=== PATIENT | male | born 1955 | race Caucasian/White ===

== ENCOUNTER 2017-12-18 07:01 | Emergency (ER) | payer BC ==
[2017-12-18 07:18] VITALS: BP 147/84
--- NOTE | 2017-12-18 07:23 | UC ---
Skin Complaint HPI - HPI Summary HPI Summary: 62 year old male with rash. Exposed to poison leann recently and now with rash. Pt states rash on arms, legs and scrotum d/t poison leann that started 12/17/17. No fever. no SOB. 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 [ End ] - History of Current Complaint Chief Complaint: UCSkin Time Seen by Provider: 12/18/17 07:20 Stated Complaint: RASH Hx Obtained From: Patient Onset/Duration: Sudden Onset Timing: Constant Onset Severity: Moderate Current Severity: Moderate Pain Intensity: 0 - Allergy/Home Medications Allergies/Adverse Reactions: Allergies Allergy/AdvReac Type Severity Reaction Status Date / Time Penicillins Allergy Severe Anaphylatic Verified 12/18/17 07:12 Shock Home Medications: Home Medications Levothyroxine TAB* [Synthorid 112 MCG TAB*] 1 tab PO DAILY 12/18/17 [History Confirmed 12/18/17] Review of Systems Skin: Rash Is Patient Immunocompromised?: No All Other Systems Reviewed And Are Negative: Yes PMH/Surg Hx/FS Hx/Imm Hx Previously Healthy: Yes Endocrine History: Thyroid Disease - Surgical History Surgical History: None - Family History Known Family History: Positive: Unknown - Social History Occupation: Employed Full-time Alcohol Use: Occasionally Substance Use Type: None Smoking Status (MU): Never Smoked Tobacco Physical Exam Triage Information Reviewed: Yes Appearance: Well-Appearing Vital Signs: Initial Vital Signs Temp 98.2 F 12/18/17 07:13 Pulse 73 12/18/17 07:13 Resp 16 12/18/17 07:13 BP 147/84 12/18/17 07:13 Pulse Ox 98 12/18/17 07:13 Vital Signs Reviewed: Yes Eye Exam: Normal ENT Exam: Normal Neck: Positive: 1 Respiratory Exam: Normal Cardiovascular Exam: Normal Musculoskeletal Exam: Normal Neurological Exam: Normal Psychological Exam: Normal Skin Exam: Normal Skin: Positive: rashes - papulovesicular lesions/ rash on b/l UE with linear appearance on the left forearm. scrptum inspection non contributory Course/Dx - Course Course Of Treatment: has had numerous times. treat at this time. f/u with PCP - Differential Diagnoses - Skin Complaint Differential Diagnoses: Contact Dermatitis, Drug Rash, Local Allergic Reaction, Poison Leann, Poison Proctor, Urticaria - Diagnoses Provider Diagnoses: Contact dermatitis due to plant Discharge - Sign-Out/Discharge Documenting (check all that apply): Discharge/Admit/Transfer - Discharge Plan Condition: Good Disposition: HOME Prescriptions: methylPREDNISolone [Medrol Dosepak 4 MG*] 0 mg PO .SEE MARTI INSTRUCTION #1 tab Triamcinolone 0.025% OINT * 1 applic TOPICAL BID #1 tube Patient Education Materials: Poison Leann (ED) Referrals: Keli Daniels MD [Primary Care Provider] - 4 Days (if needed ) - Billing Disposition and Condition Condition: GOOD Disposition: HOME
== END 2017-12-18 07:32 | disposition home or self-care (01) ==
LOC: UCEAST 07:01
DX: T63.791A Toxic effect of contact with other venomous plant, accidental (unintentional), initial encounter (principal); L23.7 Allergic contact dermatitis due to plants, except food; Y92.9 Unspecified place or not applicable; Z88.0 Allergy status to penicillin
CPT/HCPCS: 99212; G0463

== ENCOUNTER 2018-07-22 05:30 | Day surgery (SDC) | payer BC ==
[~2018-07-22 05:30] MED LIST: Buffered Lidocaine 0.9% SYRIN* 5 ML/SYR SYRINGE INTRADERM ONE
[2018-07-22] MEDS ORDERED: Lactated Ringers 1000 ML Bag* 1,000 ML IV SCH (06:00)
[2018-07-22] MEDS ORDERED: Famotidine IV* 10 MG/ML 2 ML (20 mg) IV ONE (06:00)
[2018-07-22] MEDS ORDERED: Dexamethasone IV* 4 MG/ML 1 ML (4 MG) ONE (06:03)
[2018-07-22] MEDS ORDERED: Clindamycin 900 MG/D5W BAG(*) 900 MG/50 ML BAG IVPB ONE (06:03)
[2018-07-22] MEDS ORDERED: Famotidine IV* 10 MG/ML 2 ML (20 mg) ONE (06:03)
[2018-07-22] MEDS: Dexamethasone IV* 4 MG/ML 1 ML (4 MG) IV SLOW PU ONE ×2 (06:18→06:19)
[2018-07-22] MEDS ORDERED: Atracurium* 10 MG/ML 10 ML VIAL ONE (07:03)
[2018-07-22] MEDS ORDERED: Midazolam* 1 MG/ML 5 ML VIAL (5 MG) ONE (07:03)
[2018-07-22] MEDS ORDERED: fentaNYL* 50 MCG/ML 2 ML VIAL (100 MCG VIAL) ONE (07:03)
[2018-07-22] MEDS ORDERED: Lidocaine 2% PF * 5 ML VIAL ONE (07:03)
[2018-07-22] MEDS ORDERED: Propofol* 10 MG/ML 20 ML BTL ONE (07:03)
[2018-07-22] MEDS ORDERED: Ondansetron INJ* 2 MG/ML VIAL ONE (07:03)
[2018-07-22] MEDS ORDERED: ROPIVACAINE 5 MG/ML 30 ML BTL (0.5%) ONE (07:18)
[2018-07-22] MEDS ORDERED: Phenylephrine INJ* 10 MG/ML 1 ML VIAL (10 MG) ONE (08:09)
[2018-07-22] MEDS ORDERED: EPINEPHRINE 1 MG/ML 1 ML VIAL ONE (08:34)
[2018-07-22] MEDS ORDERED: fentaNYL* 50 MCG/ML 2 ML VIAL (100 MCG VIAL) IV PRN (09:02)
[2018-07-22] MEDS ORDERED: Naloxone* 0.4 MG/ML 1 ML VIAL IV PRN (09:02)
[2018-07-22] MEDS ORDERED: oxyCODONE/Acetamin 5/325 MG* TAB PO PRN (09:02)
[2018-07-22] MEDS ORDERED: HYDROmorphone INJ1* 1 MG/ML SYRINGE IV PRN (09:02)
[2018-07-22] MEDS ORDERED: Ondansetron INJ* 2 MG/ML VIAL IV PRN (09:02)
[2018-07-22] MEDS ORDERED: DiMENhydriNATE IV* 50 MG/ML VIAL IV PUSH PRN (09:02)
[2018-07-22] MEDS ORDERED: Bupivacaine 0.5% W/EPI SDV* 30 ML VIAL ONE (09:26)
[2018-07-22 12:39] VITALS: BP 125/75
--- NOTE | 2018-07-24 20:36 | OP ---
OPERATIVE REPORT: DATE OF OPERATION: 07/22/18 DATE OF : 57 SURGEON: Harshad Tony MD PIT OPERATOR: AJ Katz A physician teachers assistant was required for the length of the case for assistance with positioning, retrac tion, instrumentation and closure. ANESTHESIOLOGIST: Dr. Edis Real. ANESTHESIA: General anesthesia, interscalene block regional anesthesia, local anesthesia consisting of approximately 10 cc of 0.5% Marcaine with epinephrine. PRE-OP DIAGNOSES: 1. Left shoulder rotator cuff tendon tear, subscapularis, full-thickness, full width, retracted. 2. Left shoulder mild rotator cuff tendinitis, possible low-grade partial- thickness tear supraspina tus. 3. Left shoulder AC joint osteoarthritis, subacromial bursitis, medial subluxation in the long head of the biceps tendon. POST-OP DIAGNOSES: 1. Left shoulder rotator cuff tendon tear, subscapularis, full-thickness, full width, retracted. 2. Left shoulder mild rotator cuff tendinitis, supraspinatus. 3. Left shoulder AC joint osteoarthritis, subacromial bursitis and impingement, medial subluxation l cely head of biceps tendon. OPERATIVE PROCEDURE: 1. Left shoulder open rotator cuff tendon repair, subscapularis. 2. Left shoulder open proximal biceps tenodesis, subpectoral. 3. Left shoulder arthroscopic subacromial decompression. 4. Left shoulder arthroscopic distal clavicle resection. 5. Left shoulder arthroscopic evaluation of the supraspinatus rotator cuff tendon. 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 The patient was referred to me by a partner. The patient was initially scheduled to have his surgery approximately 1 month ago, bu t this was delayed because of a dental infection or dental work, requiring a root canal. The patient was on antibiotics after that root canal. He has been symptom-free and approximately 1 month has pa ssed since that dental work. We discussed risks and potential complications. I discussed pros and cons of arthroscopic versus open approach. I certainly repair subscapularis ten dons with both approaches. The patient did not mind a larger incision and preferred more fixation th at can be provided with an open approach. I considered doing the whole surgery open, but I wanted to inspect the supraspinatus, so I decided th at I would first use joint arthroscopy to inspect the supraspinatus and decide whether that would nee d to be repaired. POSITIONING: Lazy beach chair. IV FLUIDS: See Anesthesia note. ANTIBIOTICS: Clindamycin 900 mg IV. GBMT-HR-IMUJ TIME: 157 minutes. ARTHROSCOPIC FLUID UTILIZED: Nursing certified orthotist practice manager was not aware of this number. SPECIMENS: None. IMPLANTS: Mitek Healix 4.5-mm anchors, double loaded, x5. COMPLICATIONS: None. ESTIMATED BLOOD LOSS: Minimal. DESCRIPTION OF PROCEDURE: Preoperatively, the patient signed a written consent. Operative extremity marked in preoperative holding. The patient underwent an interscalene nerve block by Dr. Real. The patient was taken back to the operating room and placed supine on operating room table. The shyann ent was sedated and intubated. The patient was placed in a beach chair position using a headrest. We also utilized a spider arm positioner. The left shoulder was prepped and draped. Surgical time-out was performed. The rest behind the left shoulder and upper torso was removed for the arthroscopic c omponent of the case. I injected 30 cc of normal saline into the glenohumeral joint from posterior. I then made a posterio r portal and commenced my diagnostic arthroscopy. The patient had no articular cartilage wear in the glenohumeral joint. I noted a very subluxed medially long head biceps tendon. There was a very ret racted subscapularis tendon tear. No articular cartilage lesions. No clear supraspinatus tear noted from its articular side. I used an arthroscopic scissors to cut the biceps tendon near its origin. I debrided some inflamed t issue about the anterior joint near the subscapularis. I next moved to the subacromial space. I made a lateral and then a posterolateral arthroscopy portal s. There was some inflammation about the anterior supraspinatus, similar to where I had an area of c oncern based on preoperative imaging that I appreciated, but the radiologist did not comment on. I d ebrided some bursa with an arthroscopic shaver. I inspected this tissue well and realized that this was rotator interval tissue that had retracted posterior rather than the supraspinatus tissue itself. I next performed a subacromial decompression using an arthroscopic denisa. I then proceeded to the AC joint. I debrided bursitic tissue with the VAPR and then removed 8 mm of the bone with an arthroscop ic denisa. I next removed fluid and instruments from the shoulder. Closed skin incisions with [id number] a nd 12 stitches using nylon 3-0 suture. Reapplied the back piece to provide support to the back and s houlder for the open component of the case. I took the patient out of some beach chair, moved him 20 degrees closer to flat, under the guidance of Anesthesia. I marked and then made a skin incision consistent with a deltopectoral approach. I changed my knife and dissected with scissors down to the cephalic vein. I took the cephalic vein laterally with the d eltoid. I noted that the patient had a very muscular deltoid muscle. I identified the conjoint tend ons. I identified the pectoralis major tendon, which was also robust. I removed some clavipectoral fascia overlying the subscapularis. I identified the bicipital groove, which was devoid of the bicep s tendon because it had subluxed so much medially. I made an incision in the scar tissue and fascia at the point of the bicipital groove. I found the long head biceps tendon and placed a tagging stitc h in it. I noted the subscapularis tendon to be very retracted. There was fascial tissue that was present mor e laterally, but the subscapularis tendon had retracted proximal to the coracoid. I placed a series of tagging stitches in the subscapularis tendon. I placed tension on this and freed it up with my fi ngers, anteriorly, posteriorly and superiorly. I found that with the shoulder in small amount of internal rotation, the tendon was reducible to its footprint, the lesser trochanter. I prepared the lesser trochanter. I did this with rongeur, curette, and high-speed denisa. The patien t had a quite large footprint. I decided to maximize stability and use 5 anchors. I placed 2 medial, 1 central and 2 lateral anchor s, all Mitek Healix, all 4.5-mm double loaded. I next used a free needle to pass 9 stitches into the subscapularis tendon. One of the stitches from one of the anchors was pulled out, but 9 stitches were placed. This brought tendon nicely to bone. It was certainly under some tension, notable when the shoulder was externally rotated beyond neutral. I next used 2 FiberWire #2 sutures, [id number] stitches to tenodese the long head biceps tendon to the pectoralis major tendon near its insertion. I had some light tension on the long head biceps tendon to assure a good biceps contour. Irrigation. I next closed the deltopectoral interval with a running stitch using a colored Ethibond 0 suture. Irrigation. Closed subcutaneous tissue with buried simple stitches using Vicryl 2-0 sutur e. Closed the skin with a running stitch using nylon 3-0 suture. Xeroform over all incisions, 4x4s, ABDs, foam tape. The patient was placed in a sling without an abd uction pillow. He was awakened, extubated and brought to the PACU. DISPOSITION: The patient was provided wound care instructions. He was sent on Percocet as needed fo r pain control and Bactrim, 5-day course for infection prophylaxis. The patient will follow up with 10 to 14 days postoperative. He was given wound care instructions. We will hold off on physical the rapy in the early postoperative period. We will certainly keep him from externally rotating beyond n eutral with that shoulder given that repair was under some tension. I explained this to his pos toperatively. [id number]/[facility] #: [id number]
== END 2018-07-22 13:25 | disposition home or self-care (01) ==
LOC: OR 05:30
PROVIDERS: ATTEND Orthopaedic Surgery
DX: S46.012A Strain of muscle(s) and tendon(s) of the rotator cuff of left shoulder, initial encounter (principal); M75.42 Impingement syndrome of left shoulder; M19.012 Primary osteoarthritis, left shoulder; M75.52 Bursitis of left shoulder; M75.22 Bicipital tendinitis, left shoulder; W19.XXXA Unspecified fall, initial encounter; Y92.79 Other farm location as the place of occurrence of the external cause; G89.18 Other acute postprocedural pain; E03.9 Hypothyroidism, unspecified
CPT/HCPCS: J1100; J2250; J2405; J2704; J2795; J3010

== ENCOUNTER → 2019-07-05 07:42 | Day surgery (SDC) | payer BC ==
[~2019-07-05 07:42] MED LIST changes: +Acetaminophen TAB* 325 MG PO PRN; -Buffered Lidocaine 0.9% SYRIN* 5 ML/SYR SYRINGE INTRADERM ONE; +Buffered Lidocaine 1% SYRIN* 1 ML/SYRINGE INTRADERM ONE; +Bupivacaine 0.5%* 50 ML MDV VIAL ONE; +Clindamycin 900 MG/D5W BAG(*) 900 MG/50 ML BAG IVPB ONE; +Dexamethasone IV* 4 MG/ML 1 ML (4 MG) ONE; +Famotidine IV* 10 MG/ML 2 ML (20 mg) IV ONE; +Famotidine IV* 10 MG/ML 2 ML (20 mg) ONE; +Glycopyrrolate IV* 0.2 MG/ML 1 ML VIAL ONE; +HYDROmorphone INJ1* 1 MG/ML SYRINGE ONE; +Ketorolac INJ* 30 MG/ML 1 ML VIAL ONE; +Lidocaine 2% PF * 5 ML VIAL ONE; +Midazolam* 1 MG/ML 2 ML VIAL (2 MG) ONE; +Naloxone* 0.4 MG/ML 1 ML VIAL IV PRN; +Neostigmine Methylsulfate* 3 MG/3 ML SYRINGE ONE; +Ondansetron INJ* 2 MG/ML VIAL IV PRN; +Ondansetron INJ* 2 MG/ML VIAL ONE; +PROCHLORPERAZINE INJ 5 MG/ML 2 ML VIAL IV PRN; +Phenylephrine 40 MCG/ML SYRINGE ONE; +Propofol* 10 MG/ML 20 ML BTL ONE; +Rocuronium* 10 MG/ML VIAL ONE; +diPHENhydraMINE IV* 50 MG/ML 1 ml VIAL (BENADRYL) IV PRN; +fentaNYL* 50 MCG/ML 5 ML VIAL (250 MCG VIAL) ONE; +oxyCODONE TAB* 5 MG TAB PO PRN
[2019-07-05] MEDS: Lactated Ringers 1000 ML Bag* 1,000 ML IV SCH ×2 (08:29→12:28)
[2019-07-05] MEDS: HYDROmorphone INJ1* 1 MG/ML SYRINGE IV PRN ×2 (12:11→12:20)
--- NOTE | 2019-07-05 14:40 | OP ---
DATE OF OPERATION: 07/05/19 - [facility] DATE OF : 57 SURGEON: Andrés Conrad MD WORK AND FAMILY LIFE CONSULTANT: AJ Wilson PRE-OP DIAGNOSES: Hindfoot valgus with talocalcaneal posttraumatic arthritis and large talonavicular dorsal bone spur. POST-OP DIAGNOSES: Hindfoot valgus with talocalcaneal posttraumatic arthritis and large talonavicular dorsal bone spur. OPERATIVE PROCEDURES: Medial displacement of calcaneal osteotomy with subtalar fusion, tibial bone graft, and resection of spur talonavicular joint. DESCRIPTION OF PROCEDURE: The patient was taken to the operating room, lateral positioning used with a thigh tourniquet. We made a lateral longitudinal incision from the malleolus down toward the base of the fourth metatarsal. The peroneal tendons were isolated on a Vi drain so that we could reflect them dorsally and plantarward. By reflecting them dorsally, we were able to isolate the groove of the peroneus longus and then a microsagittal saw was used to divide the calcaneus, displacing this a centimeter medially, this was pinned with a provisional pin from the heel up to the sinus tarsi. We then displaced the peroneals plantarward to allow dissection of the subtalar joint itself which was opened with a laminar petrologist. There was an eburnated area laterally which was sub-fibular. The joint itself was repaired for arthrodesis using a 4 mm power denisa at low power . We also dissected over the dorsum through the same flap to expose the talonavicular bone spur, which was removed with a 0.5 inch curved osteotome. We then made a 3 cm incision proximally at Gerdy's tubercle. Opening the lateral cortex with a small denisa, we used a cancellous graft using the long handle curette, the bone cortex was left intact except the small denisa hole. We then replaced the defect proximally with some packed cancellous chips. The autograft was placed along the talocalcaneal joint. We also prepared a femoral head to fill the gap somewhat correcting the hindfoot valgus as well. We used the large saw, cutting through the base of the head and neck area, which was then decorticated and gave us a nice firm wedge of allograft about 1.5 cm in thickness and 3 to 4 cm in length. This was fit snugly within the talocalcaneal space, again with some surrounding autograft. We then advanced 2 guidepins across that area into the head and neck of the talus exchanging for cannulated compression screws and washers. We then irrigated this lateral wound closing with 2-0 Monocryl sutures, venkat for the skin, and 2-0 Prolene sutures for the heel wound. Compression dressing and plaster splint was then applied. [id number]/[facility] #: [id number] AMRGARITA
[2019-07-05 15:28] VITALS: BP 112/87
== END | disposition home or self-care (01) ==
LOC: OR 07:42
PROVIDERS: ATTEND Orthopaedic Surgery
DX: M19.171 Post-traumatic osteoarthritis, right ankle and foot (principal); M25.774 Osteophyte, right foot; Z88.0 Allergy status to penicillin; Z87.891 Personal history of nicotine dependence; K21.9 Gastro-esophageal reflux disease without esophagitis; E03.9 Hypothyroidism, unspecified
CPT/HCPCS: 76000; C1713; C1776; J1100; J1170; J1885; J2250; J2405; J2704; J2710; J3010; J3490

== ENCOUNTER 2019-10-10 09:25 | Inpatient (IN) | payer BC ==
--- OUTSIDE RECORDS SUMMARY | 2019-10-10 10:02 | XMS REPORT | Continuity of Care Document ---
:1955 External Reference #:[id number] Author Name Andrés Conrad M.D. 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 Onset: 06/01/2018 Social History Type Date Description Comments Sex Unknown ETOH Use Occasionally consumes alcohol Tobacco Use Start: Unknown Patient has never smoked Smoking Status Reviewed: 09/21/19 Patient has never smoked Exercise Type/Frequency Exercises regularly Allergies, Adverse Reactions, Alerts Active Allergies Reaction Severity Comments Date Penicillins 04/26/2015 Medications Active Medications SIG Qnty Indications Ordering Provider Date Bactrim DS 1 by mouth 28tabs L03.115 Andrés Conrad, 09/14/2019 800-160mg twice a day M.D. Tablets Knee High Compression 20 mm two M19.171 Andrés Conrad, 09/02/2019 Stockings M.D. Levothyroxine Sodium 1 by mouth Unknown 112mcg every day Tablets Aspirin Adult Unknown Tylenol Unknown Vitamin D-3 Unknown History Medications Oxycodone HCL 1-2 tabs by mouth 60tabs Jose Lara MD 07/05/2019 - 5mg every 4-6 hours 09/01/2019 Tablets as needed Immunizations Description No Information Available Vital Signs Date Vital Result Comment 09/21/2019 9:21am Height 72.25 inches 6'0.25" Weight 203.00 lb Heart Rate 49 /min BP Systolic 122 mmHg BP Diastolic 82 mmHg Body Temperature 98.3 F Pain Level 3 BMI (Body Mass Index) 27.3 kg/m2 09/14/2019 8:14am Height 72.25 inches 6'0.25" Weight 203.00 lb BP Systolic 126 mmHg BP Diastolic 69 mmHg Respiratory Rate 15 /min Body Temperature 97.8 F Pain Level 2 BMI (Body Mass Index) 27.3 kg/m2 Results Test Acquired Date Facility Test Result H/L Range Note Laboratory test 09/14/2019 [facility] Erythrocyte Sed 83 mm/Hr High 0-[address] [place] [address] [phone] C Reactive Protein 228.93 mg/L High <8.01 Procedures Date Code Description Status 07/20/2019 16081 Short Leg Cast Completed Medical Devices Description No Information Available Encounters Type Date Location Provider Dx Diagnosis Office Visit 06/15/2019 [facility] Andrés Conrad, M19.171 Post- traumatic 8:15a at [facility] osteoarthritis, right ankle and foot Office Visit 05/03/2019 [facility] Harshad Roth75.52 Bursitis of left 2:00p at [facility] MD shoulder M25.512 Pain in left shoulder Assessments Date Code Description Provider 09/21/2019 L03.115 Cellulitis of right lower limb Andrés Conrad M.D. 09/21/2019 M19.171 Post-traumatic osteoarthritis, right ankle Andrés Conrad M.D. and foot 09/21/2019 Z47.89 Encounter for other orthopedic aftercare Andrés Conrad M.D. 09/14/2019 L03.115 Cellulitis of right lower limb Andrés Conrad M.D. 09/02/2019 M19.171 Post-traumatic osteoarthritis, right ankle Andrés Conrad M.D. and foot 08/12/2019 M19.171 Post-traumatic osteoarthritis, right ankle Andrés Conrad M.D. and foot 08/12/2019 Z47.89 Encounter for other orthopedic aftercare Andrés Conrad M.D. 07/20/2019 M19.171 Post-traumatic osteoarthritis, right ankle Andrés Conrad M.D. and foot 06/15/2019 M19.171 Post-traumatic osteoarthritis, right ankle Andrés Conrad M.D. and foot 05/03/2019 M75.52 Bursitis of left shoulder Harshad Tony MD 05/03/2019 M25.512 Pain in left shoulder Harshad Tony MD Plan of Treatment Future Appointment(s):09/28/2019 11:15 am - Andrés Conrad M.D. at [facility] at Udvnwv0710/05/2019 8:30 am - Andrés Conrad M.D. at [facility] at Epxnip4409/21/2019 - Andrés Conrad M.D.L03.115 Cellulitis of right lower limbReferral:Conor Pan MD, Infectious DiseasesFollow up: Follow up: 1 weekM19.171 Post-traumatic osteoarthritis, right ankle and footZ47.89 Encounter for other orthopedic aftercare Functional Status Description No Information Available Mental Status Description No Information Available Referrals Refer to Dr Reason for Referral Status Appt Date Conor Pan MD Created [address] [facility] [place] [id number] [phone]
--- OUTSIDE RECORDS SUMMARY | 2019-10-10 10:02 | XMS REPORT | Continuity of Care Document ---
:1955 External Reference #:[id number] Author Name Andrés Conrad M.D. 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 Onset: 06/01/2018 Social History Type Date Description Comments Sex Unknown ETOH Use Occasionally consumes alcohol Tobacco Use Start: Unknown Patient has never smoked Smoking Status Reviewed: 09/14/19 Patient has never smoked Exercise Type/Frequency Exercises regularly Allergies, Adverse Reactions, Alerts Active Allergies Reaction Severity Comments Date Penicillins 04/26/2015 Medications Active Medications SIG Qnty Indications Ordering Provider Date Bactrim DS 1 by mouth 28tabs L03.115 Andrés Conrad, 09/14/2019 800-160mg twice a day M.D. Tablets Knee High Compression 20 mm two M19.171 Andrés Conrad, 09/02/2019 Stockings M.DDuke Levothyroxine Sodium 1 by mouth Unknown 112mcg every day Tablets Aspirin Adult Unknown Tylenol Unknown Vitamin D-3 Unknown History Medications Oxycodone HCL 1-2 tabs by mouth 60tabs Jose Lara MD 07/05/2019 - 5mg every 4-6 hours 09/01/2019 Tablets as needed Immunizations Description No Information Available Vital Signs Date Vital Result Comment 09/14/2019 8:14am Height 72.25 inches 6'0.25" Weight 203.00 lb BP Systolic 126 mmHg BP Diastolic 69 mmHg Respiratory Rate 15 /min Body Temperature 97.8 F Pain Level 2 BMI (Body Mass Index) 27.3 kg/m2 09/02/2019 8:05am Height 72.25 inches 6'0.25" Weight 203.00 lb Heart Rate 86 /min BP Systolic 128 mmHg BP Diastolic 78 mmHg Respiratory Rate 12 /min Body Temperature 97.2 F Pain Level 2 BMI (Body Mass Index) 27.3 kg/m2 Results Description No Information Available Procedures Date Code Description Status 07/20/2019 70564 Short Leg Cast Completed Medical Devices Description No Information Available Encounters Type Date Location Provider Dx Diagnosis Office Visit 06/15/2019 [facility] Jared Simmons9.171 Post- traumatic 8:15a at [facility] osteoarthritis, right ankle and foot Office Visit 05/03/2019 [facility] Harshad Krishnan M75.52 Bursitis of left 2:00p at [facility] MD shoulder M25.512 Pain in left shoulder Assessments Date Code Description Provider 09/14/2019 L03.115 Cellulitis of right lower limb [...] Harshad Tony MD Plan of Treatment Future Appointment(s):09/21/2019 9:30 am - Andrés Conrad M.D. at [facility] at Epdiwu8010/05/2019 8:30 am - Andrés Conrad M.D. at [facility] at Igqjkn3409/14/2019 - Andrés Conrad M.D.L03.115 Cellulitis of right lower limbNew Medication:Bactrim DS 800-160 mg - 1 by mouth twice a dayNew Labs:Erythrocyte Sed Rate, Ordered: 09/14/19C Reactive Protein, Ordered: 09/14/19New Xrays:CT Extremity Lower Right Wo, Ordered: 09/14/19Follow up:1 week Functional Status Description No Information Available Mental Status Description No Information Available Referrals Description No Information Available
--- OUTSIDE RECORDS SUMMARY | 2019-10-10 10:02 | XMS REPORT | Continuity of Care Document ---
:1955 External Reference #:[id number] Author Name Andrés Conrad M.D. 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 Onset: 06/01/2018 Social History Type Date Description Comments Sex Unknown ETOH Use Occasionally consumes alcohol Tobacco Use Start: Unknown Patient has never smoked Smoking Status Reviewed: 09/02/19 Patient has never smoked Exercise Type/Frequency Exercises regularly Allergies, Adverse Reactions, Alerts Active Allergies Reaction Severity Comments Date Penicillins 04/26/2015 Medications Active Medications SIG Qnty Indications Ordering Provider Date Knee High Compression 20 mm two M19.171 Andrés Conrad, 09/02/2019 Stockings Flory Levothyroxine Sodium 1 by mouth Unknown 112mcg every day Tablets Aspirin Adult Unknown Tylenol Unknown Vitamin D-3 Unknown History Medications Oxycodone HCL 1-2 tabs by mouth 60tabs Jose Lara MD 07/05/2019 - 5mg every 4-6 hours 09/01/2019 Tablets as needed Immunizations Description No Information Available Vital Signs Date Vital Result Comment 09/02/2019 8:05am Height 72.25 inches 6'0.25" Weight 203.00 lb Heart Rate 86 /min BP Systolic 128 mmHg BP Diastolic 78 mmHg Respiratory Rate 12 /min Body Temperature 97.2 F Pain Level 2 BMI (Body Mass Index) 27.3 kg/m2 08/12/2019 8:04am Height 72 inches 6'0" Weight 200.75 lb Heart Rate 90 /min BP Systolic 140 mmHg BP Diastolic 62 mmHg Respiratory Rate 20 /min Body Temperature 97.0 F Pain Level 0 BMI (Body Mass Index) 27.2 kg/m2 Results Description No Information Available Procedures Date Code Description Status 07/20/2019 82809 Short Leg Cast Completed Medical Devices Description No Information Available Encounters Type Date Location Provider Dx Diagnosis Office Visit 06/15/2019 [facility] Andrés Conrad M19.171 Post- traumatic 8:15a at [facility] osteoarthritis, right ankle and foot Office Visit 05/03/2019 [facility] M75.52 Bursitis of left 2:00p at [facility] MD shoulder M25.512 Pain in left shoulder Office Visit 03/09/2019 10:30a Susi Krishnan S46.012D Strain of Orthopedics at [facility] musc/tend the [place] rotator cuff of left shoulder, subs S46.112D Strain of musc/fasc/tend long head of biceps, left arm, subs M75.52 Bursitis of left shoulder Assessments Date Code Description Provider 09/02/2019 M19.171 Post-traumatic osteoarthritis, right ankle Andrés [...] Pain in left shoulder Harshad Tony MD 03/09/2019 S46.012D Strain of muscle(s) and tendon(s) of the Harshad Tony MD rotator cuff of lef 03/09/2019 S46.112D Strain of muscle, fascia and tendon of Harshad Tony MD long head of biceps, 03/09/2019 M75.52 Bursitis of left shoulder Harshad Tony MD Plan of Treatment Future Appointment(s):10/05/2019 8:30 am - Andrés Conrad M.D. at [facility] at Aatzvs1109/02/2019 - Andrés Conrad M.D.M19.171 Post-traumatic osteoarthritis, right ankle and footNew Medication:Knee High Compression Stockings - 20 mm Functional Status Description No Information Available Mental Status Description No Information Available Referrals Description No Information Available
--- OUTSIDE RECORDS SUMMARY | 2019-10-10 10:02 | XMS REPORT | Continuity of Care Document ---
:1955 External Reference #:[id number] Author Name Andrés Conrad M.D. 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 Onset: 06/01/2018 Social History Type Date Description Comments Sex Unknown ETOH Use Occasionally consumes alcohol Tobacco Use Start: Unknown Patient has never smoked Smoking Status Reviewed: 09/28/19 Patient has never smoked Exercise Type/Frequency Exercises regularly Allergies, Adverse Reactions, Alerts Active Allergies Reaction Severity Comments Date Penicillins Hives, swelling 04/26/2015 Medications Active Medications SIG Qnty Indications Ordering Provider Date Knee High Compression 20 mm two M19.171 Andrés Conrad, 09/02/2019 Stockings M.D. Levothyroxine Sodium 1 by mouth Unknown 112mcg every day Tablets Aspirin Adult Unknown Tylenol Unknown Vitamin D-3 Unknown Bactrim DS 1 by mouth Unknown 800-160mg Tablets twice a day History Medications Bactrim DS 1 by mouth twice 28tabs L03.115 Andrés Conrad, 09/14/2019 - a day M.DDuke 09/27/2019 800-160mg Tablets Oxycodone HCL 1-2 tabs by 60tabs Jose Lara, 07/05/2019 - 5mg mouth every 4-6 MD 09/01/2019 Tablets hours as needed Immunizations Description No Information Available Vital Signs Date Vital Result Comment 09/28/2019 11:20am Height 72.25 inches 6'0.25" Weight 199.00 lb Heart Rate 65 /min BP Systolic 120 mmHg BP Diastolic 80 mmHg Body Temperature 96.9 F Pain Level 3 BMI (Body Mass Index) 26.8 kg/m2 09/28/2019 9:37am Height 72.25 inches 6'0.25" Weight 199.38 lb Heart Rate 72 /min BP Systolic Sitting 112 mmHg BP Diastolic Sitting 80 mmHg Respiratory Rate 14 /min Body Temperature 97.8 F BMI (Body Mass Index) 26.9 kg/m2 Results Test Acquired Date Facility Test Result H/L Range Note Laboratory test 09/14/2019 [facility] Erythrocyte Sed 83 mm/Hr High 0-[address] [place] [address] [phone] C Reactive Protein 228.93 mg/L High <8.01 Procedures Date Code Description Status 07/20/2019 83491 Short Leg Cast Completed Medical Devices Description No Information Available Encounters Type Date Location Provider Dx Diagnosis Office Visit 06/15/2019 [facility] Andrés Conrad M19.171 Post- traumatic 8:15a at [facility] osteoarthritis, right ankle and foot Office Visit 05/03/2019 [facility] Harshad F M75.52 Bursitis of left 2:00p at [facility] MD shoulder M25.512 Pain in left shoulder Assessments Date Code Description Provider 09/28/2019 L03.115 Cellulitis of right lower limb Andrés Conrad M.D. 09/28/2019 L03.115 Cellulitis of right lower limb Conor Pan M.D. 09/28/2019 M19.171 Post-traumatic osteoarthritis, right Andrés Conrad M.D. ankle and foot 09/21/2019 L03.115 Cellulitis of right lower limb Andrés Conrad M.D. 09/21/2019 M19.171 Post-traumatic osteoarthritis, right Andrés Conrad M.D. ankle and foot 09/21/2019 Z47.89 Encounter for other orthopedic aftercare Andrés Conrad M.D. 09/14/2019 L03.115 Cellulitis of right lower limb Andrés Conrad M.D. 09/02/2019 M19.171 Post-traumatic osteoarthritis, right Andrés Conrad M.D. ankle and foot 08/12/2019 M19.171 Post-traumatic osteoarthritis, right Andrés Conrad M.D. ankle and foot 08/12/2019 Z47.89 Encounter for other orthopedic aftercare Andrés Conrad M.D. 07/20/2019 M19.171 Post-traumatic osteoarthritis, right Andrés Conrad M.D. ankle and foot 06/15/2019 M19.171 Post-traumatic osteoarthritis, right Andrés Conrad M.D. ankle and foot 05/03/2019 M75.52 Bursitis of left shoulder Harshad Tony MD 05/03/2019 M25.512 Pain in left shoulder Harshad Tony MD Plan of Treatment Future Appointment(s):10/12/2019 8:15 am - Andrés Conrad M.D. at [facility] at Pyfwhm4510/05/2019 9:30 am - Conor Pan M.D. at [facility] Yegkuoeu89/25/2020 - Andrés Conrad M.D.L03.115 Cellulitis of right lower limbFollow up:2 cilmuE74.171 Post-traumatic osteoarthritis, right ankle and foot Functional Status Description No Information Available Mental Status Description No Information Available Referrals Refer to Reason for Referral Status Appt Date Conor Pan MD [facility]28[facility] [address] [facility] [place] [address] [phone]
--- OUTSIDE RECORDS SUMMARY | 2019-10-10 10:02 | XMS REPORT | Continuity of Care Document ---
:1955 External Reference #:[id number] Author Name Andrés Conrad M.D. 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 Onset: 06/01/2018 Social History Type Date Description Comments Sex Unknown ETOH Use Occasionally consumes alcohol Tobacco Use Start: Unknown End: Patient is a former smoker Unknown Smoking Status Reviewed: 08/12/19 Patient is a former smoker Exercise Type/Frequency Exercises regularly Allergies, Adverse Reactions, Alerts Active Allergies Reaction Severity Comments Date Penicillins 04/26/2015 Medications Active Medications SIG Qnty Indications Ordering Provider Date Oxycodone HCL 1-2 tabs by 60tabs Jose Lara MD 07/05/2019 5mg Tablets mouth every 4-6 hours as needed Naproxen 1 tablet with 90tabs M25.512 Ana Lilia House, 06/01/2018 500mg Tablets food by mouth M.D. twice a day Levothyroxine Sodium 1 by mouth Unknown 112mcg every day Tablets Immunizations Description No Information Available Vital Signs Date Vital Result Comment 08/12/2019 8:04am Height 72 inches 6'0" Weight 200.75 lb Heart Rate 90 /min BP Systolic 140 mmHg BP Diastolic 62 mmHg Respiratory Rate 20 /min Body Temperature 97.0 F Pain Level 0 BMI (Body Mass Index) 27.2 kg/m2 07/20/2019 8:06am Height 72 inches 6'0" Weight 195.00 lb Heart Rate 97 /min Body Temperature 96.7 F O2 % BldC Oximetry 98 % BMI (Body Mass Index) 26.4 kg/m2 Results Description No Information Available Procedures Date Code Description Status 07/20/2019 98868 Short Leg Cast Completed Medical Devices Description No Information Available Encounters Type Date Location Provider Dx Diagnosis Office Visit 06/15/2019 [facility] Andrés Conrad, M19.171 Post- traumatic 8:15a at [facility] osteoarthritis, right ankle and foot Office Visit 05/03/2019 [facility] Harshad Krishnan M75.52 Bursitis of left 2:00p at [facility] MD shoulder M25.512 Pain in left shoulder Office Visit 03/09/2019 10:30a [facility] Harshad Krishnan S46.012D Strain of Orthopedics at [facility] musc/tend the [place] rotator cuff of left shoulder, subs S46.112D Strain of musc/fasc/tend long head of biceps, left arm, subs M75.52 Bursitis of left shoulder Assessments Date Code Description Provider 08/12/2019 M19.171 Post-traumatic osteoarthritis, right ankle Andrés [...] Harshad Tony MD Plan of Treatment Future Appointment(s):09/02/2019 8:15 am - Andrés Conrad M.D. at [facility] at Tnkfvn8908/12/2019 - Andrés Conrad M.D.M19.171 Post-traumatic osteoarthritis, right ankle and footNew Xrays:Ankle Right 3+VWS, Ordered: Follow up:Follow up: 3 weeks with repeat x-raysZ47.89 Encounter for other orthopedic aftercare Functional Status Description No Information Available Mental Status Description No Information Available Referrals Description No Information Available
--- OUTSIDE RECORDS SUMMARY | 2019-10-10 10:02 | XMS REPORT | Continuity of Care Document ---
:1955 External Reference #:[id number] Author Name Conor Pan M.D. 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 09/27/2019 800-160mg Tablets Oxycodone HCL 1-2 tabs by 60tabs Jose Lara, 07/05/2019 - 5mg mouth every 4-6 MD 09/01/2019 Tablets hours as needed Immunizations Description No Information Available Vital Signs Date Vital Result Comment 09/28/2019 9:37am Height 72.25 inches 6'0.25" Weight 199.38 lb Heart Rate 72 /min BP Systolic Sitting 112 mmHg BP Diastolic Sitting 80 mmHg Respiratory Rate 14 /min Body Temperature 97.8 F BMI (Body Mass Index) 26.9 kg/m2 09/21/2019 9:21am Height 72.25 inches 6'0.25" Weight 203.00 lb Heart Rate 49 /min BP Systolic 122 mmHg BP Diastolic 82 mmHg Body Temperature 98.3 F Pain Level 3 BMI (Body Mass Index) 27.3 kg/m2 Results Test Acquired Date Facility Test Result H/L Range Note Laboratory test 09/14/2019 [facility] Erythrocyte Sed 83 mm/Hr High 0-[address] [place] [address] [phone] C Reactive Protein 228.93 mg/L High <8.01 Procedures Date Code Description Status 07/20/2019 30082 Short Leg Cast Completed Medical Devices Description No Information Available Encounters Type Date Location Provider Dx Diagnosis Office Visit 06/15/2019 [facility] Andrés Conrad, M19.171 Post- traumatic 8:15a at [facility] osteoarthritis, right ankle and foot Office Visit 05/03/2019 [facility] Harshad F M75.52 Bursitis of left 2:00p at [facility] MD shoulder M25.512 Pain in left shoulder Assessments Date Code Description Provider 09/28/2019 L03.115 Cellulitis of right lower limb Conor Pan M.D. 09/21/2019 L03.115 Cellulitis of right lower limb [...] Tony MD Plan of Treatment Future Appointment(s):10/05/2019 9:30 am - Conor Pan M.D. at [facility] Ndrjabzu87/25/2020 - Conor Pan M.D.L03.115 Cellulitis of right lower limbComments:jim wrap provided for swelling; he will call if return of redness, pain, swelling which would indicate a deeper infection, at this point though it looks to be improving and should continue to do so over the next couple of weeksFollow up:next week Functional Status Description No Information Available Mental Status Description No Information Available Referrals Refer to Reason for Referral Status Appt Date Coonr Pan MD Closed 09/28/2019 [address] [facility] [place] [address] [phone]
[2019-10-10 10:18] LABS: Red Blood Count 4.25 10^6 /uL (4.18-5.48)
[2019-10-10 10:19] LABS: ABS Eosinophils 0.1 10^3/ul (0-0.6); ABS Lymphocytes 1.3 10^3/ul (1.0-4.8); ABS Monocytes 1.1 10^3/ul (0-0.8); ABS Neutrophils 6.5 10^3/ul (1.5-7.7); Eosinophil % 0.8 %; Hematocrit 36 % (42-52); Hemoglobin 12.1 g/dL (14.0-18.0); Lymphocyte % 14.1 %; Mean Corpuscular HGB Conc 34 g/dL (31-36); Mean Corpuscular Hemoglobin 28 pg (27-31); Mean Corpuscular Volume 84 fL (80-94); Mean Platelet Volume 7.1 fL (7.4-10.4); Platelet Count 293 10^3/uL (150-450); Red Cell Distribution Width 16 % (10-15)
[2019-10-10] MEDS ORDERED: oxyCODONE/Acetamin 5/325 MG* TAB PO ONE (11:12)
[2019-10-10 11:24] LABS: Erythrocyte Sed Rate 61 mm/Hr (0-19)
--- NOTE | 2019-10-10 11:24 | ED ---
Lower Extremity - HPI Summary HPI Summary: This patient is a 63-year-old presents to the ED with the request of Dr. Conrad for a possible infection at surgical site. Patient had surgery in July with effusion of the right ankle. He states about 4 weeks ago he developed an infection, was treated as an outpatient with antibiotics, Bactrim, which improved his symptoms. He states this pain is very similar to his infection and he is concerned that it has reoccurred. Patient does have significant swelling and tenderness over the lateral malleoli without radiation to the lower extremity. Endorses fever yesterday, but denies this currently. He states since this morning, he has been unable to bear weight. Was able to call Dr. Conrad this morning. - History of Current Complaint Chief Complaint: EDExtremityLower Stated Complaint: POSS INFECTION PER PT Time Seen by Provider: 10/10/19 09:30 Hx Obtained From: Patient Onset of Pain: Days Onset/Duration: Days Severity Initially: Moderate Severity Currently: Severe Pain Intensity: 6 Pain Scale Used: 0-10 Numeric Timing: Constant Location: Is Discrete @ - right ankle Character Of Pain: Aching Associated Signs And Symptoms: Positive: Swelling, Redness. Negative: Bruising , Weakness, Dizziness, Syncope Aggravating Factor(s): Standing Alleviating Factor(s): Rest Able to Bear Weight: Yes - Allergies/Home Medications Allergies/Adverse Reactions: Allergies Allergy/AdvReac Type Severity Reaction Status Date / Time Penicillins Allergy Severe Anaphylatic Verified 10/10/19 09:30 Shock Home Medications: Home Medications Levothyroxine TAB* [Synthorid 112 MCG TAB*] 112 mcg PO QAM 12/18/17 [History Confirmed 10/10/19] Aspirin/Acetaminophen/Caffeine [Excedrin Migraine Caplet] 2 tab PO ONCE PRN 06/21 [History Confirmed 10/10/19] Calcium Carb/Magnesium Hydrox [Rolaids 550-110 mg] 1 chw PO ONCE PRN 07/14/18 [ History Confirmed 10/10/19] Famotidine [Pepcid] 20 mg PO QAM PRN 10/10/19 [History Confirmed 10/10/19] PMH/Surg Hx/FS Hx/Imm Hx Previously Healthy: Yes Endocrine/Hematology History: Reports: Hx Thyroid Disease - ON MEDICATION FOR Denies: Hx Diabetes Cardiovascular History: Denies: Hx Hypertension, Hx Pacemaker/ICD, Other Cardiovascular Problems/ Disorders Respiratory History: Denies: Hx Asthma, Hx Chronic Obstructive Pulmonary Disease (COPD), Other Respiratory Problems/Disorders GI History: Reports: Hx Gastroesophageal Reflux Disease - PRN ROLAIDS Denies: Hx Ulcer, Other GI Disorders History: Denies: Hx Renal Disease, Other Problems/Disorders Musculoskeletal History: Reports: Hx Arthritis - RIGHT ANKLE Denies: Other Musculoskeletal History Sensory History: Reports: Hx Contacts or Glasses - GLASSES Denies: Hx Hearing Aid Opthamlomology History: Reports: Hx Contacts or Glasses - GLASSES Neurological History: Denies: Other Neuro Impairments/Disorders Psychiatric History: Denies: Hx Panic Disorder - Surgical History Surgery Procedure, Year, and Place: SEWED RIGHT MIDDLE FINGER BACK ON-52 YEARS AGO, 07/2018 left shoulder Hx Anesthesia Reactions: No - Immunization History Hx Pertussis Vaccination: No Immunizations Up to Date: Yes Infectious Disease History: No Infectious Disease History: Denies: Hx Hepatitis, Hx Human Immunodeficiency Virus (HIV), Traveled Outside the [place] in Last 30 Days - Family History Known Family History: Positive: Unknown - Social History Occupation: Employed Full-time Lives: With Family Alcohol Use: Occasionally Alcohol Amount: 1 PER WEEK Hx Substance Use: No Substance Use Type: Reports: None Smoking Status (MU): Never Smoked Tobacco Have You Smoked in the Last Year: No Review of Systems Positive: Fever. Negative: Chills, Fatigue, Skin Diaphoresis Negative: Palpitations, Chest Pain Negative: Shortness Of Breath, Cough Positive: Arthralgia - right ankle Skin: Negative Neurological/Mental Status: Negative All Other Systems Reviewed And Are Negative: Yes Physical Exam Triage Information Reviewed: Yes Vital Signs On Initial Exam: Initial Vitals Temp Pulse Resp BP Pulse Ox 99.0 F 99 16 140/83 98 10/10/19 09:27 10/10/19 09:27 10/10/19 09:27 10/10/19 09:27 10/10/19 09:27 Vital Signs Reviewed: Yes Appearance: Positive: Well-Appearing, Well-Nourished Skin: Positive: Warm, Skin Color Reflects Adequate Perfusion Head/Face: Positive: Normal Head/Face Inspection Eyes: Positive: EOMI, AGUSTÍN, Conjunctiva Clear Neck: Positive: Supple, No Lymphadenopathy Respiratory/Lung Sounds: Positive: Breath Sounds Present Cardiovascular: Positive: Pulses are Symmetrical in both Upper and Lower Extremities Musculoskeletal: Positive: Pain @ - right ankle pain and swelling Neurological: Positive: Speech Normal Psychiatric: Positive: Normal, Affect/Mood Appropriate Procedures - Sedation Patient Received Moderate/Deep Sedation with Procedure: No Diagnostics - Vital Signs Vital Signs Temp Pulse Resp BP Pulse Ox 10/10/19 09:27 99.0 F 99 16 140/83 98 - Laboratory Lab Results: Lab Results 10/10/19 10/10/19 Range/Units 10:07 10:07 WBC 9.0 (3.5-10.8) 10^3/uL RBC 4.25 (4.18-5.48) 10^6 /uL Hgb 12.1 L (14.0-18.0) g/dL Hct 36 L (42-52) % MCV 84 (80-94) fL MCH 28 (27-31) pg MCHC 34 (31-36) g/dL RDW 16 H (10-15) % Plt Count 293 (150-450) 10^3/uL MPV 7.1 L (7.4-10.4) fL Neut % (Auto) 72.3 % Lymph % (Auto) 14.1 % Hopkins % (Auto) 12.5 % Eos % (Auto) 0.8 % Baso % (Auto) 0.3 % Absolute Neuts (auto) 6.5 (1.5-7.7) 10^3/ul Absolute Lymphs (auto) 1.3 (1.0-4.8) 10^3/ul Absolute Monos (auto) 1.1 H (0-0.8) 10^3/ul Absolute Eos (auto) 0.1 (0-0.6) 10^3/ul Absolute Basos (auto) 0.0 (0-0.2) 10^3/ul Absolute Nucleated RBC 0.0 10^3/ul Nucleated RBC % 0.0 ESR Pending C-Reactive Protein 148.46 H (<8.01) mg/L Result Diagrams: 10/10/19 12:39 Lab Statement: Any lab studies that have been ordered have been reviewed, and results considered in the medical decision making process. Lower Extremity Course/Dx - Course Course Of Treatment: On arrival to the ED, the patient has been unable to bear weight. He arrives with crutches. Significant swelling bilaterally to the right ankle. Erythema. No oozing or drainage from surgical site. Labs obtained and x-ray obtained per Dr. Conrad. Generalized soft tissue swelling: Correlate for cellulitis. No joann osseous destruction. Equivocal nondisplaced lucency through the body of the calcaneus is irritated. Postoperative changes. Labs obtained which shows an elevated white count of 10.9 and elevated CRP of 148. Patient will be admitted to Dr. Conrad's service. - Diagnoses Differential Diagnosis/HQI/PQRI: Positive: Sprain, Strain Provider Diagnoses: Ankle swelling Discharge ED - Sign-Out/Discharge Documenting (check all that apply): Patient Departure All imaging exams completed and their final reports reviewed: Yes - Discharge Plan Condition: Fair Disposition: ADMITTED TO [facility] - Billing Disposition and Condition Condition: FAIR Disposition: Admitted to [facility]
[2019-10-10] MEDS ORDERED: Ibuprofen TAB* 600 MG PO ONE (11:25)
[2019-10-10] MEDS ORDERED: Ondansetron INJ* 2 MG/ML VIAL IV PRN (11:37)
[2019-10-10] MEDS ORDERED: Ondansetron TAB* 4 MG PO PRN (11:37)
[2019-10-10] MEDS ORDERED: diPHENhydraMINE IV* 50 MG/ML 1 ml VIAL (BENADRYL) IV PRN (11:37)
[2019-10-10] MEDS ORDERED: Vancomycin(*) 1,000 MG in NS 0.9% 250 ML* 250 ML IVPB ONE (11:42)
[2019-10-10] MEDS ORDERED: Vancomycin per Pharmacy* NOTE FOLLOW UP SCH (12:00)
[2019-10-10] MEDS ORDERED: Vancomycin 1500 MG IV - x ONCE IVPB ONE ×2 (12:00)
[2019-10-10] MEDS ORDERED: Vancomycin(*) 1,000 MG VIAL IVPB SCH (12:00)
[2019-10-10] MEDS: Aspirin TAB* 325 MG PO ONE ×3 (12:41→12:43)
[2019-10-10 12:48] LABS: ABS Eosinophils 0.1 10^3/ul (0-0.6); ABS Lymphocytes 1.3 10^3/ul (1.0-4.8); ABS Monocytes 1.2 10^3/ul (0-0.8); ABS Neutrophils 8.2 10^3/ul (1.5-7.7); Hematocrit 35 % (42-52); Hemoglobin 11.8 g/dL (14.0-18.0); Lymphocyte % 12.2 %; Mean Corpuscular HGB Conc 34 g/dL (31-36); Mean Corpuscular Hemoglobin 28 pg (27-31); Mean Corpuscular Volume 84 fL (80-94); Mean Platelet Volume 7.1 fL (7.4-10.4); Platelet Count 297 10^3/uL (150-450); Red Blood Count 4.17 10^6 /uL (4.18-5.48); Red Cell Distribution Width 16 % (10-15); White Blood Count 10.9 10^3/uL (3.5-10.8)
--- NOTE | 2019-10-10 13:36 | HP ---
HISTORY AND PHYSICAL: DATE OF ADMISSION: 10/10/19 HISTORY OF PRESENT ILLNESS: Mr. Swift is a healthy tom, 63 years of age , who is a couple of months out from a right subtalar fusion with allograft bone grafting. He did well until about 5 weeks after the surgery when he developed redness and swelling in the lateral hindfoot. The wound had good primary healing. CT scan at that point showed satisfactory healing of the graft and hardware intact, no abscess noted. He did well on a couple weeks of Bactrim , but then stopped it about a week and a half ago and for 2 days now has had increased redness, erythema laterally, and pain with weightbearing. He has had some mild fevers and a persistent cough. There was upper respiratory infection about 10 days ago, viral. Mr. Swift will be admitted today for some IV antibiotics and a new CAT scan. PAST MEDICAL HISTORY: He is in good health. He is hypothyroid. He has some generalized arthritis. He has had a recent upper respiratory infection. MEDICATIONS: 1. Thyroid 112 mcg per day. 2. Adult aspirin per day. 3. Ibuprofen 200 to 400 mg up to 3 times a day as needed. 4. Vitamin D3. ALLERGIES: There is an allergy to PENICILLIN. 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 He does not smoke. REVIEW OF SYSTEMS: He has no systemic illness other than the hypothyroid. His review of systems is positive for occasional headache, some persistent cough, some feeling of chills, but no known joann fever. No nausea, vomiting, diarrhea , dizziness, lightheadedness, anxiety, depression. PHYSICAL EXAMINATION GENERAL: Mr. Swift is a healthy-appearing male of normal height and weight , well developed. He is in no acute distress, sitting up in the gurney. LUNGS: Clear to auscultation. There is no wheezing or rales noted. CARDIAC: Exam shows a regular rate. No extra sounds noted. ABDOMEN: Flat, nontender. GENITOURINARY: Deferred. EXTREMITIES: Right lower extremity shows him to have intact skin envelope, a warm sensate foot, a well-healed lateral oblique scar at the hindfoot, well- healed plantar scars as well for the screws. The erythema is isolated to the perifibular area. It tracks in terms of pain 3 to 4 cm above the fibula and down along the sinus tarsi. There is some mild pain with passive inversion and eversion. The patient is not able to weightbear comfortably. He has no fluctuance at the wound. NEUROLOGICAL: Deferred. DIAGNOSTIC STUDIES/LAB DATA: Plain radiograph shows the cannulated screws crossing the femoral head allograft. I do not see joann evidence of nonunion or screw failure. CT scan will be ordered in the near future. Admission laboratories pending. IMPRESSION AND PLAN: The patient with at least soft tissue infection somewhat persistent right hindfoot after a subtalar fusion with allograft. Plan will be an admission, CAT scan, IV vancomycin, and ID consult. [id number]/CPS #: [id number] [facility] CENTERNoemy
[2019-10-10] MEDS: Ibuprofen TAB* 800 MG PO PRN (18:58)
[2019-10-10] MEDS: Acetaminophen TAB* 325 MG PO PRN (20:20)
[2019-10-10] MEDS: MELATONIN 10 MG PO PRN (20:21)
[2019-10-10] MEDS: Vancomycin(*) 1,250 MG in NS 0.9% 250 ML* 250 ML IVPB SCH (23:54)
[2019-10-11] MEDS: Ibuprofen TAB* 800 MG PO PRN ×3 (04:26→21:19)
[2019-10-11] MEDS: Acetaminophen TAB* 325 MG PO PRN (04:29)
[2019-10-11] MEDS: Levothyroxine TAB* 112 MCG TAB PO SCH (06:07)
[2019-10-11] MEDS: Vancomycin(*) 1,250 MG in NS 0.9% 250 ML* 250 ML IVPB SCH ×2 (12:02→23:53)
[2019-10-11] MEDS: Aspirin TAB* 325 MG PO SCH (14:16)
--- NOTE | 2019-10-11 14:33 | CONS ---
CONSULTATION REPORT: DATE OF CONSULT: 10/11/19 PRIMARY CARE PROVIDER: Dr. Keli Daniels. PROVIDER REQUESTING CONSULTATION: AJ Guillory CONSULTING SERVICE: Infectious Disease. PROVIDER: Kaye Lazcano NP ATTENDING PROVIDER: Dr. Conor Posadas.* (DICTATED BY KAYE LAZCANO NP) REASON FOR CONSULTATION: Right ankle infection. IMPRESSION: Right ankle infection. The patient was recently on a 2-week course of Bactrim and had returned of symptoms after stopping the antibiotics; which included fever, redness, swelling, and pain. CT scan with generalized soft tissue swelling and flexor hallucis longus tenosynovitis suspected. Suspect this represent cellulitis. The patient's CRP and ESR elevated, but they are improved compared to previous levels on 09/14/19, at which time CRP was 228.93 and the ESR was 83. The patient reports improvement in range of motion and pain and edema since admission to the hospital. He has been on vancomycin since admission. He was noted to have fever overnight 101. RECOMMENDATIONS/PLAN: Recommend continuing vancomycin at this time. He will potentially need an extended course of IV antibiotics in the set of recurrence after a course of oral antibiotics. HISTORY OF PRESENT ILLNESS: Mr. Swift is a 63-year-old male with past medical history significant for hypothyroidism, arthritis, paroxysmal atrial fibrillation, and right ankle surgery on 07/05/19. He was previously seen by Infectious Disease near the end of September for right ankle cellulitis. He completed 2 weeks of Bactrim and had improvement. He states that over the weekend, he developed redness, erythema, and pain with weightbearing in the right ankle. He presented to the emergency room for further evaluation. While in the emergency room, he was afebrile. He had labs showing no leukocytosis and elevated ESR and elevated CRP, this was down from his previous labs where his CRP was 228.93 and ESR was 83. He had a CT scan showing generalized soft tissue swelling, flexor hallucis longus tenosynovitis suspected. He was admitted to the hospital for IV antibiotics. While in the hospital, he has noted to have fever of 101 yesterday evening and again of low grade fever of 100.2 early this morning, noted to have mild leukocytosis. Overall, he feels like the redness, pain, and swelling are improving today after being started on IV vancomycin yesterday. Reports intermittent fevers and chills. Denies joint pain, muscle pain other than discomfort in the right ankle. Denies nausea, vomiting, diarrhea, urinary symptoms such as urgency, frequency, dysuria, or recent travel. PAST MEDICAL HISTORY: 1. Hypothyroidism. 2. Arthritis. 3. Paroxysmal atrial fibrillation. PAST SURGICAL HISTORY: 1. Status post right subtalar fusion with allograft bone grafting and ostectomy. 2. Left shoulder rotator cuff repair. 3. Status post right hand surgery. MEDICATIONS: Home medications: 1. Famotidine 20 mg by mouth daily as needed for indigestion. 2. Levothyroxine 112 mcg by mouth daily. 3. Rolaids 1 chewable as needed for indigestion. 4. Excedrin Migraine 2 tablets by mouth once as needed for migraine. Hospital medications: 1. Acetaminophen 325 mg by mouth every 6 hours as needed for pain. 2. Benadryl 12.5 mg IV every 6 hours as needed for itching. 3. Ibuprofen 800 mg by mouth every 8 hours as needed for pain. 4. Levothyroxine 112 mcg by mouth daily. 5. Melatonin 1 tablet by mouth daily as needed for sleep. 6. Zofran 4 mg IV or p.o. every 6 hours as needed for nausea. 7. Vancomycin 1250 mg IV every 12 hours. ALLERGIES: PENICILLIN caused anaphylactic shock. FAMILY HISTORY: Denies family history of recurrent or resistant infections. No family history of coronary artery disease or diabetes. Mother with a history of ovarian cancer. SOCIAL HISTORY: Occasionally drinks alcohol. Denies tobacco or recreational drug use. REVIEW OF SYSTEMS: I performed a 10-point review of systems. All the pertinent positives and negatives are mentioned in the history of present illness. The remaining review of systems are negative. PHYSICAL EXAMINATION: Vital signs: Temperature 98.4, heart rate 87, respiratory rate 20, O2 sat 97% on room air, blood pressure 129/75. General Appearance: Alert, appears to be in no acute distress, sitting up in bed. Head : Normocephalic, atraumatic. EENT: Extraocular movements are intact. No subconjunctival hemorrhage. Moist mucous membranes. Neck: Supple. No lymphadenopathy. Neurological: Alert and oriented x3. Cranial nerves II through XII are grossly intact. Moves all extremities. Cardiovascular: Regular rate and rhythm. S1, S2 present. No murmurs, rubs, or gallops heard. Respiratory: Lungs are clear to auscultation bilateral. There is no accessory muscle use. Abdomen: Bowel sounds present. Abdomen soft, nontender, nondistended. Extremities: He has localized edema to the right ankle on both the lateral and medial aspects near the malleolus and additionally some edema noted in the forefoot. DP and PT pulses are 2+ and symmetric. Musculoskeletal : No clubbing or cyanosis noted. Exhibits good strength in all extremities. No tenderness with palpation of the neck, back, or spine. He is able to dorsi and plantarflex the right ankle, this is slightly limited due to the amount of edema. Psychological: Calm and cooperative. Skin: No rashes or abnormalities seen. There is slight erythema noted to the right medial ankle. DIAGNOSTIC STUDIES/LABORATORY DATA: White blood cell count 10.9, hemoglobin 11.8, hematocrit 35, platelet count 297. CRP 148.96. ESR 61. Please see impression and recommendations outlined above, recommendations have been discussed with AJ Garcia. Thank you for asking us to see Mr. Swift in consultation. The case has been discussed with my attending Dr. Conor Posadas, who agrees with the plan of care. Reviewed by ELÍAS GREGORY 10/12/19 [id number]/[facility] #: [id number] MTDNoemy
--- NOTE | 2019-10-11 14:51 | PN ---
Progress Note - Progress Note Date of Service: 10/11/19 SOAP: Subjective: [The pt was seen this morning sitting in bed. He states that he is feeling better. He did have a fever overnight of 101. The pt states that he is able to get up with crutches today. He has been able to weight bear slightly through the foot. The pt denies any numbness, tingling, chest pain, SOB, nausea or vomiting. ] Objective: [General: Pt is alert and oriented x3. NAD. MSK, RLE: The right ankle has diffuse soft tissue swelling. The ankle has some mild erythema laterally around the previous incision. The pt is able to df and pf slightly. He has sensation distally. 2+ DP pulse. ] Vital Signs Temp 98.3 F 10/11/19 12:39 Pulse 87 10/11/19 12:39 Resp 20 10/11/19 12:39 BP 133/81 10/11/19 12:39 Pulse Ox 99 10/11/19 12:39 Intake & Output 10/10/19 10/11/19 10/11/19 18:59 06:59 18:59 Intake Total 516 391 4827 Output Total 492 607 8036 Balance 25 225 -875 Weight 195 lb Intake: IV Fluids 35 NS (0.9%) 35 IVPB 325 330 NS (0.9%) 40 vanco 285 330 Oral 520 1260 Output: Urine 720 580 2805 Other: Estimated Void Medium # Voids 2 Assessment: [s/p right right hindfoot persistent infection s/p subtalor fusion with allograft] Plan: [The pt was allowed to start with partial weight bearing while using crutches He will continue with Vanco We will recheck labs in the morning Discharge tomorrow morning, pt will start Dalvance on Fri for first infusion. ]
[2019-10-11] MEDS: MELATONIN 10 MG PO PRN (20:48)
[2019-10-12] MEDS: Levothyroxine TAB* 112 MCG TAB PO SCH (05:33)
[2019-10-12] MEDS: Ibuprofen TAB* 800 MG PO PRN (05:33)
[2019-10-12 06:02] LABS: Hematocrit 32 % (42-52); Hemoglobin 10.8 g/dL (14.0-18.0); Mean Corpuscular HGB Conc 34 g/dL (31-36); Mean Corpuscular Hemoglobin 29 pg (27-31); Mean Corpuscular Volume 84 fL (80-94); Mean Platelet Volume 6.9 fL (7.4-10.4); Platelet Count 268 10^3/uL (150-450); Red Blood Count 3.75 10^6 /uL (4.18-5.48); Red Cell Distribution Width 15 % (10-15); White Blood Count 7.6 10^3/uL (3.5-10.8)
[2019-10-12 07:48] LABS: CRP High Sensitivity 182.5 mg/L (<2.00)
[2019-10-12 09:37] LABS: C Reactive Protein 200.48 mg/L (<8.01)
--- NOTE | 2019-10-12 09:50 | PN ---
Progress Note - Progress Note Date of Service: 10/12/19 SOAP: Subjective: CC: Right ankle infection HPI: Mr. Swift is a 63 yo male with PMH significant for hypothyroidism, arthritis , P afib, and right ankle surgery in July 2019; who presented to the emergency room with right ankle swelling and erythema. Denies fever, chills, nausea, vomiting, or diarrhea. He has been able to bear weight on the right ankle with mild discomfort. He continues to have right ankle edema. Objective: Vital Signs - 8 hr 10/12/19 10/12/19 10/12/19 03:33 07:22 07:53 Temperature 98.1 F 98.1 F Pulse Rate 79 79 Respiratory 16 16 18 Rate Blood Pressure 115/65 117/63 (mmHg) O2 Sat by Pulse 99 96 Oximetry Physical Exam: General: NAD, sitting up in bed Neurological: Alert and Oriented HEENT: Moist MM Cardiovascular: Heart rate regular Respiratory: Lung sounds clear Abdominal: Bowel sounds present; ABD soft, non tender and non distended MSK: Able to dorsi and plantar flex the right ankle about 50%. There is edema to the lateral and medical aspects of the right ankle Skin: No rash Laboratory Results - last 24 hr 10/12/19 10/12/19 05:46 05:47 WBC 7.6 RBC 3.75 L Hgb 10.8 L Hct 32 L MCV 84 MCH 29 MCHC 34 RDW 15 Plt Count 268 MPV 6.9 L C-Reactive Protein 200.48 H C-React Prot High Sens 182.50 H Assessment: 1. Right ankle infection - cellulitis with concern for a deeper infection. CT with generalized soft tissue swelling and flexor hallucis longus tenosynovitis. Improved ROM compared to yesterday. Afebrile and no leukocytosis. CRP up from yesterday, but overall down compared to September. Plan: Continue Vancomycin while in the hospital. Discharge Plan: Dalvance 1,500 mg IV once tomorrow and repeat x 1 week later. He will get labs at the second dose of Dalvance. Floor time: 25 minutes > 50% spent with the patient discussing long course of IV ABX, followup labs, followup appointment, and when to call the office (fever , rash or diarrhea).
--- NOTE | 2019-10-12 10:19 | PN ---
Progress Note - Progress Note Date of Service: 10/12/19 SOAP: Subjective: []Pt seen and examined today. Denies fever, chills, CP, SOB, dizziness, nausea. R foot pain is improving, feels his ankle ROM has improved by "50%" today. Objective: []Gen: NAD, nontoxic appearing RLE: Foot is warm, intact skin envelope with well healed scar over lateral hindfoot. Ankle and foot remain swollen without fluctuance and erythema has resolved. Very mild tenderness of medial ankle, no lateral tenderness. f/e ankle improved no pain. f/e MTPs intact without pain. Assessment: []s/p right right hindfoot persistent infection s/p subtalar fusion with allograft] Plan: [partial weight bearing while using crutches He will continue with Vanco through his noon dose then go home with first dose of dalvance tomorrow Follow up with Dr Conrad in 1 week Vital Signs Temp 98.1 F 10/12/19 07:22 Pulse 79 10/12/19 07:22 Resp 18 10/12/19 07:53 BP 117/63 10/12/19 07:22 Pulse Ox 96 10/12/19 07:22 Intake & Output 10/11/19 10/12/19 10/12/19 18:59 06:59 18:59 Intake Total 1625 1675 320 Output Total 2750 1100 200 Balance -1125 575 120 Intake: IV Fluids 35 NS (0.9%) 35 IVPB 330 275 vanco 330 275 Oral 1260 1400 320 Output: Urine 2750 1100 200 Other: Estimated Void Medium # Bowel Movements 0 # Voids 2 Laboratory Last Values WBC 7.6 10^3/uL (3.5-10.8) 10/12/19 05:46 RBC 3.75 10^6 /uL (4.18-5.48) L 10/12/19 05:46 Hgb 10.8 g/dL (14.0-18.0) L 10/12/19 05:46 Hct 32 % (42-52) L 10/12/19 05:46 MCV 84 fL (80-94) 10/12/19 05:46 MCH 29 pg (27-31) 10/12/19 05:46 MCHC 34 g/dL (31-36) 10/12/19 05:46 RDW 15 % (10-15) 10/12/19 05:46 Plt Count 268 10^3/uL (150-450) 10/12/19 05:46 MPV 6.9 fL (7.4-10.4) L 10/12/19 05:46 Neut % (Auto) 75.0 % 10/10/19 12:39 Lymph % (Auto) 12.2 % 10/10/19 12:39 [place] % (Auto) 11.4 % 10/10/19 12:39 Eos % (Auto) 1.0 % 10/10/19 12:39 Baso % (Auto) 0.4 % 10/10/19 12:39 Absolute Neuts (auto) 8.2 10^3/ul (1.5-7.7) H 10/10/19 12:39 Absolute Lymphs (auto) 1.3 10^3/ul (1.0-4.8) 10/10/19 12:39 Absolute Monos (auto) 1.2 10^3/ul (0-0.8) H 10/10/19 12:39 Absolute Eos (auto) 0.1 10^3/ul (0-0.6) 10/10/19 12:39 Absolute Basos (auto) 0.0 10^3/ul (0-0.2) 10/10/19 12:39 Absolute Nucleated RBC 0.0 10^3/ul 10/10/19 12:39 Nucleated RBC % 0.0 10/10/19 12:39 ESR 61 mm/Hr (0-19) H 10/10/19 10:07 C-Reactive Protein 200.48 mg/L (<8.01) H 10/12/19 05:47 C-React Prot High Sens 182.50 mg/L (<2.00) H 10/12/19 05:47
--- NOTE | 2019-10-12 10:50 | DS ---
Orthopedic Discharge Summary - Discharge Summary Date of Admission:10/10/19 Date of Discharge: 10/12/19 Date of Surgery: none this stay Attending Orthopedic Provider: Dr Conrad Pre-operative Diagnosis: s/p right right hindfoot persistent infection s/p subtalar fusion with allograft Operative Procedure: [none this stay] Disposition of Patient:[home] Home care vs Outpatient services: none] Condition of Patient: [stable] Pain medication RX at discharge: [tylenol and ibuprofen] DVT prophylaxis RX at discharge: [aspirin 325 mg qd during period of decreased mobility ] History: CYDNIE ARGUELLO is a 63 year old M with right hindfoot infection Hospital Course: CYNDIE was admitted to [facility] on 10/10/19. Patient underwent a [ right hindfoot persistent infection s/p subtalar fusion with allograft] ID service was consulted, cellulitis improved over the course of his stay. On 10/11 Foot is warm, intact skin envelope with well healed scar over lateral hindfoot. Ankle and foot remain swollen without fluctuance and erythema has resolved. Very mild tenderness of medial ankle, no lateral tenderness. f/e ankle improved no pain. f/e MTPs intact without pain. Stable for DC home. Home Medications Medication Instructions Recorded Confirmed Type Levothyroxine TAB* [Synthorid 112 112 mcg PO QAM 12/18/17 10/10/19 History MCG TAB*] Aspirin/Acetaminophen/Caffeine 2 tab PO ONCE PRN 07/14/18 10/10/19 History [Excedrin Migraine Caplet] Calcium Carb/Magnesium Hydrox 1 chw PO ONCE PRN 07/14/18 10/10/19 History [Rolaids Chewable Tablet] Famotidine [Pepcid] 20 mg PO QAM PRN 10/10/19 10/10/19 History Acetaminophen TAB* [Tylenol TAB*] 325 mg PO Q6H PRN tab 10/12/19 Rx Aspirin TAB* [Aspirin 325 MG TAB*] 325 mg PO Q24H #14 tab 10/12/19 Rx Discharge Instructions following Orthopedic Surgery: Activity: * partial 50 % weight bearing while using crutches * Continue physical therapy and occupational therapy exercises as shown Wound care: * OK to shower Call Orthopedic office for: * Increased drainage * Redness * Increased pain * Fever Go to ER with shortness of breath or chest pain. Diet: * Regular diet * Increase fluids and fiber to prevent constipation. * Continue to use stool softeners, call office if no bowel motion within 48 hours. Medications See Home Medication List in your packet for medications that you should take after discharge. DVT Prophylaxis: Aspirin Dosin mg once a day while decreased mobility. Increases bleeding tendency Pain Control: Tylenol 650 mg every 4 hours as needed for mild pain. Max 4000 mg per day from all sources ibuprofen 600 mg ever 8 hours as needed for moderate pain. Antibiotics: Dalvance injection 10/12 per infectious disease FOLLOW UP: Follow up with Dr. Hoover] Within [7] days, sooner with concerns, call for appointment Please call our office with any questions or concerns ([phone]) [facility]
[2019-10-12 11:09] VITALS: BP 127/65
[2019-10-12] MEDS ORDERED: Vancomycin Trough Check NOTE FOLLOW UP ONE (11:30)
[2019-10-12 12:29] LABS: EGFR Non-African American 61.9 (>60)
[2019-10-12 12:39] LABS: Vancomycin Trough 11.9 mcg/mL
[2019-10-12] MEDS: Vancomycin(*) 1,250 MG in NS 0.9% 250 ML* 250 ML IVPB SCH (12:46)
[2019-10-12] MEDS: Aspirin TAB* 325 MG PO SCH (13:24)
== END 2019-10-12 15:05 | disposition home or self-care (01) | DRG 721 ==
LOC: ED 09:25 → SSU 11:37
PROVIDERS: ADMIT Surgery; ATTEND Orthopaedic Surgery
DX: T81.41XA Infection following a procedure, superficial incisional surgical site, initial encounter (principal); L03.115 Cellulitis of right lower limb; L08.89 Other specified local infections of the skin and subcutaneous tissue; M65.9 Synovitis and tenosynovitis, unspecified; E03.9 Hypothyroidism, unspecified; M19.90 Unspecified osteoarthritis, unspecified site; I48.0 Paroxysmal atrial fibrillation; Z79.82 Long term (current) use of aspirin; Z79.899 Other long term (current) drug therapy; Z88.0 Allergy status to penicillin
CPT/HCPCS: 36415; 80202; 82565; 84520; 85025; 85027; 85652; 86140; 86141; 99284; A9270-GY; J3370